=== PATIENT | male | born 1950 | race Caucasian/White ===

== ENCOUNTER 2019-06-24 13:55 | Outpatient (CLI) | payer MEDICARE, OTHER ==
--- NOTE | 2019-06-24 15:04 | RAD ---
2 VIEWS CHEST: Date: 06/24/2019 PROVIDED CLINICAL HISTORY: COPD. FINDINGS: Cardiac and mediastinal silhouette is within normal limits. No focal consolidation or pleural fluid o r pneumothorax apparent. IMPRESSION: No evidence for an acute cardiopulmonary process. POS: [facility]
== END 2019-06-24 13:56 | disposition home or self-care (01) ==
LOC: SCSRAD 13:55
PROVIDERS: ATTEND Nurse Practitioner Family
DX: J44.9 Chronic obstructive pulmonary disease, unspecified (principal); R06.00 Dyspnea, unspecified
CPT/HCPCS: 71046